=== PATIENT | male | born 1945 | race Caucasian/White ===

== ENCOUNTER 2016-10-02 16:27 | Observation (INO) | payer MEDICARE, OTHER ==
[2016-10-02] VITALS (7 sets, daily range): BP systolic 136–160; BP diastolic 76–107; PULSE 83–103; RESP 18–20; TEMP 97.9–98.7; O2SAT 95–99
[~2016-10-02] VITALS: Ht 172.7 cm; Wt 100.0 kg
[2016-10-02 17:06] LABS: BASOPHIL # 0.1 TH/MM3 (0-0.2); BASOPHIL % 0.7 % (0.0-2.0); EOSINOPHIL # 0.3 TH/MM3 (0-0.4); EOSINOPHIL % 2.8 % (0.0-4.0); HEMATOCRIT 33.7 % (39.0-51.0); HEMO FLAGS DIFF FINAL; LYMPH % 12.6 % (9.0-44.0); LYMPHOCYTE # 1.2 TH/MM3 (1.0-4.8); MEAN CELL VOLUME 92.2 FL (80.0-100.0); MEAN CORPUSCULAR HEMOGLOBIN 31.3 PG (27.0-34.0); MEAN CORPUSCULAR HGB CONC 33.9 % (32.0-36.0); MONO % 6.9 % (0.0-8.0); PLATELET COUNT 187 TH/MM3 (150-450); RED BLOOD COUNT 3.66 MIL/MM3 (4.50-5.90); RED CELL DISTRIBUTION WIDTH 14.4 % (11.6-17.2); WHITE BLOOD COUNT 9.1 TH/MM3 (4.0-11.0)
[2016-10-02 17:18] LABS: PROTHROMBIN TIME - PATIENT 11.3 SEC (9.8-11.6)
--- NOTE | 2016-10-02 17:27 | RADRPT ---
EXAM DATE/TIME: 10/02/2016 17:05 [facility] COMPARISON: No previous studies available for comparison. INDICATIONS : Patient fell this afternoon. MEDICAL HISTORY : None. SURGICAL HISTORY : None. ENCOUNTER: Initial ACUITY: 1 day PAIN SCORE: 8/10 LOCATION: Bilateral chest FINDINGS: A single view of the chest demonstrates the lungs to be symmetrically aerated without evidence of mas s, infiltrate or effusion. The cardiomediastinal contours are unremarkable. Osseous structures are intact. CONCLUSION: Normal examination. Seb Siddiqi MD on October 02, 2016 at 17:25 Board Certified Radiologist. This report was verified electronically.
--- NOTE | 2016-10-02 17:28 | RADRPT ---
EXAM DATE/TIME: 10/02/2016 17:12 [facility] COMPARISON: No previous studies available for comparison. INDICATIONS : Patient fell this afternoon. MEDICAL HISTORY : None. SURGICAL HISTORY : None. ENCOUNTER: Initial ACUITY: 1 day PAIN SCORE: 7/10 LOCATION: Left Forearm. FINDINGS: Two view examination of the left forearm demonstrates no evidence of fracture or dislocation. Bony m ineralization is normal. The soft tissue structures are intact. CONCLUSION: Unremarkable examination of the left forearm. Seb Siddiqi MD on October 02, 2016 at 17:26 Board Certified Radiologist. This report was verified electronically.
--- NOTE | 2016-10-02 17:28 | RADRPT ---
EXAM DATE/TIME: 10/02/2016 17:07 [facility] COMPARISON: No previous studies available for comparison. INDICATIONS : Patient fell this afternoon. MEDICAL HISTORY : None. SURGICAL HISTORY : None. ENCOUNTER: Initial ACUITY: 1 day PAIN SCORE: 7/10 LOCATION: Left Humerus. FINDINGS: Two view examination of the left humerus demonstrates no evidence of fracture or dislocation. Bony m ineralization is normal. The soft tissue structures are intact. CONCLUSION: Unremarkable examination of the left humerus except for small 8mm ossific fragment could be loose bod y within the bicipital tendon sheath. Seb Siddiqi MD on October 02, 2016 at 17:25 Board Certified Radiologist. This report was verified electronically.
[2016-10-02 17:35] LABS: ALKALINE PHOSPHATASE 60 U/L (45-117); ALT (GPT) 43 U/L (12-78); ANION GAP 7 MEQ/L (5-15); AST (GOT) 22 U/L (15-37); BICARBONATE 24.8 MEQ/L (21.0-32.0); BLOOD UREA NITROGEN 28 MG/DL (7-18); CHLORIDE 108 MEQ/L (98-107); CREATINE KINASE 105 U/L (39-308); GLOMERULAR FILTRATION RATE 51 ML/MIN (>89); MAGNESIUM 1.7 MG/DL (1.5-2.5); POTASSIUM 4.4 MEQ/L (3.5-5.1); SODIUM (NA) 140 MEQ/L (136-145); TOTAL BILIRUBIN ADULT 0.3 MG/DL (0.2-1.0)
--- NOTE | 2016-10-02 17:36 | PD ---
HPI Chief Complaint: Fall Time Seen by Provider: 17:28 Travel History International Travel<30 days: No Contact w/Intl Traveler<30days: No Traveled to known affect area: No History of Present Illness HPI 71-year-old male that presents to the ED for evaluation of syncope and fall. Patient was brought here by ambulance for evaluation of this. Per patient he was done as see his doctor Dr. Shaw her today to get clearance for surgery on his right shoulder. Per patient he was getting to the building when he all of a sudden felt very dizzy and lightheaded and he try to stop himself from falling by falling on the left side on a wall and he eventually lost consciousness. He does not remember what actually happened. Per patient he woke up with severe right-sided chest pain as well as left elbow and shoulder pain. Per patient he does have some right back pain as well as some neck pain and a slight headache. Patient does admit to psych. Patient has skin tears to his left arm. He denies any numbness, tilling, weakness. He denies any blood thinners other than aspirin. Per patient he denies any numbness, tilling, weakness. Per patient most of his pain is on the right chest which is severe and increases with movement. Ambulance was contacted and they brought him here on a backboard and with cervical collar in place. Per patient his pain currently 7 out of 10. He states been up-to-date with his tetanus. Unclear as to the amount of time he was out. 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 HEAD: Atraumatic. Normocephalic. EYES: Pupils equal and round 4 mm reactive to light and accommodation. No scleral icterus. No injection or drainage. ENT: No nasal bleeding or discharge. Mucous membranes pink and moist. Tongue is midline. No uvula deviation. NECK: Trachea midline. No JVD. CARDIOVASCULAR: Regular rate and rhythm. No murmurs, S3, S4. RESPIRATORY: No accessory muscle use. Clear to auscultation. Breath sounds equal bilaterally. GASTROINTESTINAL: Abdomen soft, non-tender, nondistended. Hepatic and splenic margins not palpable. MUSCULOSKELETAL: Extremities without clubbing, cyanosis, or edema. No obvious deformities. Full range of motion of the lower extremities with no pain. 2+ pulses bilaterally. Patient has superficial skin tears to the left arm as well as the elbow. Patient has a total of 5 of them less than 2 cm in diameter. Very well approximated. No signs of lacerations. No nerve, vessel, tendon any moment. Patient has not thoracic or lumbar spine tenderness to palpation. Patient does have some cervical spine tenderness to palpation. Most of the pain appears to be reproducible on the right-sided chest. Also pain with range of motion of the left shoulder. No obvious deformities noted. No obvious abdominal discomfort noted although some of the right ear. Pain is reproducible also on the right upper abdomen. NEUROLOGICAL: Awake and alert. No obvious cranial nerve deficits. Motor grossly within normal limits. Five out of 5 muscle strength in the arms and legs. Normal speech. PSYCHIATRIC: Appropriate mood and affect; insight and judgment normal. Data Data Last Documented VS Vital Signs Date Time Temp Pulse Resp B/P Pulse Ox O2 Delivery O2 Flow Rate FiO2 10/02/16 19:35 92 18 160/107 99 Room Air 10/02/16 16:40 98.7 Orders Electrocardiogram (10/02/16 16:45) Complete Blood Count With Diff (10/02/16 16:45) Comprehensive Metabolic Panel (10/02/16 16:45) Ckmb (Isoenzyme) Profile (10/02/16 16:45) Troponin I (10/02/16 16:45) Prothrombin Time / Inr (Pt) (10/02/16 16:45) Act Partial Throm Time (Ptt) (10/02/16 16:45) Magnesium (Mg) (10/02/16 16:45) Thyroid Stimulating Hormone (10/02/16 16:45) Chest, Single Ap (10/02/16 16:45) Ct Brain W/O Iv Contrast(Rout) (10/02/16 16:45) Ct Abd/Pel W Iv Contrast(Rout) (10/02/16 16:45) Iv Access Insert/Monitor (10/02/16 16:45) Ecg Monitoring (10/02/16 16:45) Oximetry (10/02/16 16:45) Orthostatic Vital Signs (10/02/16 16:45) Ct Thorax/ Chest W Iv Contrast (10/02/16 16:45) Ct Cerv Spine W/O Contrast (10/02/16 16:45) Forearm (2vws) (10/02/16 16:45) Humerus (Min 2vws) (10/02/16 16:45) Ice/Cold Pack (10/02/16 16:45) CKMB (10/02/16 16:53) CKMB% (10/02/16 16:53) Morphine Inj (Morphine Inj) (10/02/16 18:00) Ondansetron Inj (Zofran Inj) (10/02/16 18:00) Wound Care (10/02/16 18:28) Iohexol 350 Inj (Omnipaque 350 Inj) (10/02/16 19:07) Admit Order (Ed Use Only) (10/02/16 19:55) Labs Laboratory Tests Test 10/02/16 16:53 White Blood Count 9.1 TH/MM3 Red Blood Count 3.66 MIL/MM3 Hemoglobin 11.4 GM/DL Hematocrit 33.7 % Mean Corpuscular Volume 92.2 FL Mean Corpuscular Hemoglobin 31.3 PG Mean Corpuscular Hemoglobin 33.9 % Concent Red Cell Distribution Width 14.4 % Platelet Count 187 TH/MM3 Mean Platelet Volume 7.6 FL Neutrophils (%) (Auto) 77.0 % Lymphocytes (%) (Auto) 12.6 % Monocytes (%) (Auto) 6.9 % Eosinophils (%) (Auto) 2.8 % Basophils (%) (Auto) 0.7 % Neutrophils # (Auto) 7.0 TH/MM3 Lymphocytes # (Auto) 1.2 TH/MM3 Monocytes # (Auto) 0.6 TH/MM3 Eosinophils # (Auto) 0.3 TH/MM3 Basophils # (Auto) 0.1 TH/MM3 CBC Comment DIFF FINAL Differential Comment Prothrombin Time 11.3 SEC Prothromb Time International 1.0 RATIO Ratio Activated Partial 23.0 SEC Thromboplast Time Sodium Level 140 MEQ/L Potassium Level 4.4 MEQ/L Chloride Level 108 MEQ/L Carbon Dioxide Level 24.8 MEQ/L Anion Gap 7 MEQ/L Blood Urea Nitrogen 28 MG/DL Creatinine 1.38 MG/DL Estimat Glomerular Filtration 51 ML/MIN Rate Random Glucose 269 MG/DL Calcium Level 8.6 MG/DL Magnesium Level 1.7 MG/DL Total Bilirubin 0.3 MG/DL Aspartate Amino Transf 22 U/L (AST/SGOT) Alanine Aminotransferase 43 U/L (ALT/SGPT) Alkaline Phosphatase 60 U/L Total Creatine Kinase 105 U/L Creatine Kinase MB 1.9 NG/ML Troponin I 0.02 NG/ML Total Protein 6.7 GM/DL Albumin 3.3 GM/DL Thyroid Stimulating Hormone 4.730 uIU/ML 3rd Gen [facility] Medical Decision Making Medical Screen Exam Complete: Yes Emergency Medical Condition: Yes Medical Record Reviewed: Yes Interpretation(s) EKG shows a. fib but not in RVR, no ischemia noted read by me and attending. CBC & BMP Diagram 10/02/16 16:53 troponin and CKMB negative Last Impressions Radius/Ulna X-Ray 10/02/161644 Signed Impressions: Service Date/Time: September 17:12 - CONCLUSION: Unremarkable examination of the left forearm. Seb Siddiqi MD Humerus X-Ray 10/02/161644 Signed Impressions: Service Date/Time: September 17:07 - CONCLUSION: Unremarkable examination of the left humerus except for small 8mm ossific fragment could be loose body within the bicipital tendon sheath. Seb Siddiqi MD Head CT 10/02/161644 Signed Impressions: Service Date/Time: September 18:51 - CONCLUSION: No acute intracranial injury. Chronic-appearing sinus disease Ney Mcwilliams MD Chest X-Ray 10/02/161644 Signed Impressions: Service Date/Time: September 17:05 - CONCLUSION: Normal examination. Seb Siddiqi MD Chest CT 10/02/161644 Signed Impressions: Service Date/Time: September 18:51 - CONCLUSION: No acute findings in the chest Ney Mcwilliams MD Cervical Spine CT 10/02/161644 Signed Impressions: Service Date/Time: September 18:58 - CONCLUSION: No acute bony injury to cervical spine Ney Mcwilliams MD Abdomen/Pelvis CT 10/02/16 0410 Signed Impressions: Service Date/Time: September 18:51 - CONCLUSION: Normal examination. Ney Mcwilliams MD LFTs WNL Coags WNL Differential Diagnosis Chest pain versus fall versus head injury versus fracture versus syncope versus presyncope versus ACS Narrative Course 71-year-old male that presents to the for evaluation of syncope and fall. Patient was properly examined and was found to have signs and symptoms consistent with syncope and fall. This time recommendations for labs and imaging. Patient is agreement with this. Labs and imaging showed no sign of acute bony injury. TSH slightly elevated but otherwise unremarkable. Patient was reassured. Because of patient's syncopal episode and no history of previous syncope and do recommend admission for syncope workup. Patient is agreement with this plan. [facility] was paged. Dr Mathew agrees to admission. Diagnosis Primary Impression: Syncope Qualified Code: R55 - Syncope, unspecified syncope type Additional Impressions: Contusion of rib on right side Qualified Code: S20.211A - Contusion of rib on right side, initial encounter Head injury Qualified Code: S09.90XA - Head injury, initial encounter Avulsion of skin of forearm Qualified Code: S51.802A - Avulsion of skin of forearm, left, initial encounter Admitting Information Admitting Physician Requests: Jim Westbrook Oct 02, 2016 17:36
[2016-10-02 17:47] LABS: CKMB 1.9 NG/ML (0.5-3.6)
[2016-10-02] MEDS ORDERED: ONDANSETRON HCL 4 MG/2 ML VIAL IV PUSH ONE (18:00)
[2016-10-02] MEDS ORDERED: MORPHINE SULFATE 4 MG/ML INJ IV PUSH ONE ×2 (18:00→20:30)
[2016-10-02] MEDS ORDERED: IOHEXOL 350 MG/ML 10 ML VIAL (for RAD DIAG) IV ONE (19:07)
--- NOTE | 2016-10-02 19:17 | RADRPT ---
EXAM DATE/TIME: 10/02/2016 18:51 [facility] COMPARISON: No previous studies available for comparison. INDICATIONS : Syncopal episode with fall today; generalized malaise. RADIATION DOSE: 69.15 CTDIvol (mGy) MEDICAL HISTORY : Diabetes mellitus type 2. SURGICAL HISTORY : None. ENCOUNTER: Initial ACUITY: 1 day PAIN SCALE: 4/10 LOCATION: cranial TECHNIQUE: Multiple contiguous axial images were obtained of the head. Using automated exposure control and adj ustment of the mA and/or kV according to patient size, radiation dose was kept as low as reasonably a chievable to obtain optimal diagnostic quality images. FINDINGS: The ventricles are symmetric and normal. No abnormal extra-axial fluid collections are identified. Th ere is mild patchy diminished attenuation in periventricular white matter. No evidence of intracrania l mass or hemorrhage. There is nothing to suggest acute infarction. There is scalp laceration in the left frontal region without evidence of underlying skull fracture. There is near confluent opacificat ion of the left sphenoid sinus. CONCLUSION: No acute intracranial injury. Chronic-appearing sinus disease Ney Mcwilliams MD on October 02, 2016 at 19:12 Board Certified Radiologist. This report was verified electronically.
--- NOTE | 2016-10-02 19:29 | RADRPT ---
EXAM DATE/TIME: 10/02/2016 18:51 [facility] COMPARISON: No previous studies available for comparison. INDICATIONS : Syncopal episode with fall today; generalized malaise. IV CONTRAST: 97 cc Omnipaque 350 (iohexol) IV ; Cumulative dose for multiple exams. ORAL CONTRAST: No oral contrast ingested. RADIATION DOSE: 11.90 CTDIvol (mGy) ; Combined studies - Thorax/Abdomen/Pelvis MEDICAL HISTORY : Diabetes mellitus type 2. SURGICAL HISTORY : None. ENCOUNTER: Initial ACUITY: 1 day PAIN SCALE: 3/10 LOCATION: Abdomen/pelvis TECHNIQUE: Volumetric scanning of the abdomen and pelvis was performed. Using automated exposure control and ad justment of the mA and/or kV according to patient size, radiation dose was kept as low as reasonably achievable to obtain optimal diagnostic quality images. FINDINGS: LOWER LUNGS: The visualized lower lungs are clear. LIVER: Homogeneous density without lesion. There is no dilation of the biliary tree. No calcified gallston es. SPLEEN: Normal size without lesion. PANCREAS: Within normal limits. KIDNEYS: Normal in size and shape. There is no mass, stone or hydronephrosis. ADRENAL GLANDS: Within normal limits. VASCULAR: There is no aortic aneurysm. BOWEL/MESENTERY: The stomach, small bowel, and colon demonstrate no acute abnormality. There is no free intraperitone al air or fluid. ABDOMINAL WALL: Within normal limits. RETROPERITONEUM: There is no lymphadenopathy. BLADDER: No wall thickening or mass. REPRODUCTIVE: Within normal limits. INGUINAL: There is no lymphadenopathy or hernia. MUSCULOSKELETAL: Within normal limits for patient age. CONCLUSION: Normal examination. Ney Mcwilliams MD on October 02, 2016 at 19:25 Board Certified Radiologist. This report was verified electronically.
--- NOTE | 2016-10-02 19:30 | RADRPT ---
EXAM DATE/TIME: 10/02/2016 18:51 [facility] COMPARISON: No previous studies available for comparison. INDICATIONS : Syncopal episode with fall today; generalized malaise. IV CONTRAST: 97 cc Omnipaque 350 (iohexol) IV ; Cumulative dose for multiple exams. RADIATION DOSE: 11.90 CTDIvol (mGy) ; Combined studies - Thorax/Abdomen/Pelvis MEDICAL HISTORY : Diabetes mellitus type 2. SURGICAL HISTORY : None. ENCOUNTER: Initial ACUITY: 1 day PAIN SCALE: 5/10 LOCATION: Bilateral chest TECHNIQUE: Volumetric scanning of the chest was performed. Using automated exposure control and adjustment of t he mA and/or kV according to patient size, radiation dose was kept as low as reasonably achievable to obtain optimal diagnostic quality images. FINDINGS: LUNGS: There is no consolidation or pneumothorax. No concerning pulmonary nodule is visualized. PLEURA: There is no pleural thickening or pleural effusion. MEDIASTINUM: The heart and great vessels demonstrate no acute abnormality. There is no mediastinal or hilar lymph adenopathy. Coronary artery calcifications. Minimal pericardial fluid. AXILLAE: Within normal limits. No lymphadenopathy. SKELETAL: Within normal limits for patient age. MISCELLANEOUS: The visualized upper abdominal organs demonstrate no acute abnormality. CONCLUSION: No acute findings in the chest Ney Mcwilliams MD on October 02, 2016 at 19:28 Board Certified Radiologist. This report was verified electronically.
--- NOTE | 2016-10-02 19:33 | RADRPT ---
EXAM DATE/TIME: 10/02/2016 18:58 [facility] COMPARISON: No previous studies available for comparison. INDICATIONS : Syncopal episode with fall today; generalized malaise. RADIATION DOSE: 49.49 CTDIvol (mGy) MEDICAL HISTORY : Diabetes mellitus type 2. SURGICAL HISTORY : None. ENCOUNTER: Initial ACUITY: 1 day PAIN SCALE: 4/10 LOCATION: neck TECHNIQUE: Volumetric scanning of the cervical spine was performed. Multiplanar reconstructions in the sagittal, coronal and oblique axial planes were performed. Using automated exposure control and adjustment o f the mA and/or kV according to patient size, radiation dose was kept as low as reasonably achievable to obtain optimal diagnostic quality images. FINDINGS: Cervical spine alignment is satisfactory. There is no evidence of fracture. No bony canal or foramina l compromise is noted. There is mild degenerative change and disc disease present with a moderate siz e central to minimally left paracentral disc protrusion at C3-4, slight broad central disc protrusion C4-5. Multilevel posterior facet arthropathy is present, generally worse on the left than the right. CONCLUSION: No acute bony injury to cervical spine Ney Mcwilliams MD on October 02, 2016 at 19:29 Board Certified Radiologist. This report was verified electronically.
[2016-10-02] MEDS ORDERED: SODIUM CHLORIDE 0.9% FLUSH 10 ML FLUSH IV FLUSH PRN (20:00)
[2016-10-02] MEDS ORDERED: NALOXONE HCL 0.4 MG/ML AMP IV PRN (20:00)
[2016-10-02] MEDS: SODIUM CHLORIDE 0.9% FLUSH 10 ML FLUSH IV FLUSH SCH (20:35)
--- NOTE | 2016-10-02 21:45 | RADRPT ---
EXAM DATE/TIME: 10/02/2016 21:00 [facility] COMPARISON: No previous studies available for comparison. INDICATIONS : Syncope. MEDICAL HISTORY : Hypertension. Diabetes. SURGICAL HISTORY : Hernia repair. Left knee replacement. Tumor removed from left shoulder. ENCOUNTER: Initial ACUITY: 1 day PAIN SCORE: 8/10 LOCATION: Bilateral neck PEAK SYSTOLIC VELOCITIES (cm/sec): ICA/CCA RATIO: Right: 0.9 Left: 1.0 ICA: Right: 69 Left: 74 CCA: Right: 74 Left: 77 ECA: Right: 70 Left: 76 VERTEBRAL: Right: 30 antegrade Left: 43 antegrade Elevated flow velocities and ICA/CCA ratios have been found to correlate with increased degrees of vessel stenosis, calculated as percentage of diameter relative to a normal segment of distal ICA/CCA FINDINGS: RIGHT CAROTID: Mild calcific plaquing. LEFT CAROTID: Mild calcific plaquing. VERTEBRAL ARTERIES: Antegrade flow is seen in both vertebral arteries. MISCELLANEOUS: None. CONCLUSION: No evidence of flow-limiting carotid stenosis. Ney Mcwilliams MD on October 02, 2016 at 21:42 Board Certified Radiologist. This report was verified electronically.
--- NOTE | 2016-10-02 23:02 | EKG ---
Date Performed: 10/02/2016 Time Performed: 16:54:04 PTAGE: 71 years EKG: POSSIBLE Sinus rhythm WITH PACs ABNORMAL RHYTHM ECG PREVIOUS TRACING : 07/15/2001 20.09 Compared to previous tracing, nonspecific inferior and late ral ST/T changes have improved. DOCTOR: Junaid Sue Interpretating Date/Time 10/02/2016 23:00:38
[2016-10-03] VITALS (10 sets, daily range): BP systolic 123–173; BP diastolic 77–108; PULSE 83–124; RESP 16–20; TEMP 96–98.8; O2SAT 92–96
--- NOTE | 2016-10-03 02:29 | HHI.HP ---
[facility] Primary Care Physician Non-Staff Admission Diagnosis syncope, fall, rib contusions, skin avulsions, head injury Diagnoses: Chief Complaint: fell down Travel History International Travel<30 Days: No Contact w/Intl Traveler <30 Da: No Traveled to Known Affected Are: No History of Present Illness History from patient, ER physician communication current review of medical records. 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 She he describes the pain as his head is spinning around. He denies any nausea or vomiting. Denies any chest pain/palpitations/shortness of breath/sweating. He reports that because of this dizziness, he was starting to fall. He states he could see the floor coming towards him. He states that he then started falling towards a pole near him and his head was going towards the motor and hit so hard. He reports that impact was so severe that he passed out. Next thing He knows, there were people around him. Patient states the fall and the impact is what made him pass out. He denies syncope preceding the fall. Patient denies any confusional state post the event. He also denies any urinary or bowel incontinence. Patient states he is diabetic. However he took his last male with toast and jelly around 2 PM. He stated that the fall happened around 4 PM. He admits to skipping his breakfast and lunch apart from that toast and Jell-O. However never measures his blood sugars at home. As far as I know from ER report, there was no recorded episodes of hypoglycemia. His only complaint is that he does his chest pains in his chest and back pain since the fall Review of Systems Except as stated in HPI: all other systems reviewed are Neg Past Family Social History Past Medical History htn dm cad- mini heart attach jun 2000 afib- only takes asa 81mg quit smoking 1984 pipe and cigars tara cva- min stroke that time in jun 2000 Past Surgical History lipoma left shoulder left knee replaced one hernia Reported Medications Patient's patient does not remember the names and doses of his medications. Stated that his will bring the list in a.m. Allergies: Coded Allergies: No Known Allergies (Unverified , 10/02/16) Family History mother - htn, dm father- ca - bladder Social History used to smoke pipes quit 1983 no drinking no drugs still drives Physical Exam Vital Signs Vital Signs Date Time Temp Pulse Resp B/P Pulse Ox O2 Delivery O2 Flow Rate FiO2 10/03/16 00:42 98.4 89 18 147/94 95 10/02/16 23:40 83 10/02/16 22:11 97.9 88 18 160/91 97 10/02/16 21:00 18 10/02/16 19:35 92 18 160/107 99 Room Air 10/02/16 18:53 99 18 151/76 98 Room Air 10/02/16 18:51 94 18 137/84 99 18 153/81 100 18 151/76 10/02/16 16:50 97 Room Air 10/02/16 16:48 97 18 98 Room Air 10/02/16 16:40 98.7 103 20 136/98 95 Physical Exam GENERAL: This is a very pleasant gentleman, no acute distress. SKIN: Significant left-sided facial ecchymosis HEAD: Atraumatic. Normocephalic. No temporal or scalp tenderness. EYES: Pupils equal round and reactive. Extraocular motions intact. No scleral icterus ENT: Nose without bleeding, purulent drainage or septal hematoma. Airway patent. NECK: Trachea midline. No JVDSupple, nontender, no meningeal signs. CARDIOVASCULAR: Regular rate and rhythm without murmurs, gallops, or rubs. RESPIRATORY: Clear to auscultation. Breath sounds equal bilaterally. No wheezes , rales, or rhonchi. GASTROINTESTINAL: Abdomen soft, non-tender, nondistended. No guarding. MUSCULOSKELETAL: Extremities without clubbing, cyanosis, or edema. . No calf tenderness. NEUROLOGICAL: Awake and alert. Cranial nerves II through XII intact. Motor and sensory grossly within normal limits. Normal speech. Laboratory Laboratory Tests Test 10/02/16 10/03/16 16:53 01:00 White Blood Count 9.1 Red Blood Count 3.66 Hemoglobin 11.4 Hematocrit 33.7 Mean Corpuscular Volume 92.2 Mean Corpuscular Hemoglobin 31.3 Mean Corpuscular Hemoglobin 33.9 Concent Red Cell Distribution Width 14.4 Platelet Count 187 Mean Platelet Volume 7.6 Neutrophils (%) (Auto) 77.0 Lymphocytes (%) (Auto) 12.6 Monocytes (%) (Auto) 6.9 Eosinophils (%) (Auto) 2.8 Basophils (%) (Auto) 0.7 Neutrophils # (Auto) 7.0 Lymphocytes # (Auto) 1.2 Monocytes # (Auto) 0.6 Eosinophils # (Auto) 0.3 Basophils # (Auto) 0.1 CBC Comment DIFF FINAL Differential Comment Prothrombin Time 11.3 Prothromb Time International 1.0 Ratio Activated Partial 23.0 Thromboplast Time Sodium Level 140 Potassium Level 4.4 Chloride Level 108 Carbon Dioxide Level 24.8 Anion Gap 7 Blood Urea Nitrogen 28 Creatinine 1.38 Estimat Glomerular Filtration 51 Rate Random Glucose 269 Calcium Level 8.6 Magnesium Level 1.7 Total Bilirubin 0.3 Aspartate Amino Transf 22 (AST/SGOT) Alanine Aminotransferase 43 (ALT/SGPT) Alkaline Phosphatase 60 Total Creatine Kinase 105 269 Creatine Kinase MB 1.9 Troponin I 0.02 0.03 Total Protein 6.7 Albumin 3.3 Thyroid Stimulating Hormone 4.730 3rd Gen Result Diagram: 10/02/16165210/02/161652 Imaging Last 48 hours Impressions Radius/Ulna X-Ray 10/02/161644 Signed Impressions: Service Date/Time: September 17:12 - CONCLUSION: Unremarkable examination of the left forearm. Seb Siddiqi MD Humerus X-Ray 10/02/161644 Signed Impressions: Service Date/Time: September 17:07 - CONCLUSION: Unremarkable examination of the left humerus except for small 8mm ossific fragment could be loose body within the bicipital tendon sheath. Seb Siddiqi MD Head CT 10/02/161644 Signed Impressions: Service Date/Time: September 18:51 - CONCLUSION: No acute intracranial injury. Chronic-appearing sinus disease Ney Mcwilliams MD Chest X-Ray 10/02/161644 Signed Impressions: Service Date/Time: September 17:05 - CONCLUSION: Normal examination. Seb Siddiqi MD Chest CT 10/02/161644 Signed Impressions: Service Date/Time: September 18:51 - CONCLUSION: No acute findings in the chest Ney Mcwilliams MD Cervical Spine CT 10/02/16 1645 Signed Impressions: Service Date/Time: September 18:58 - CONCLUSION: No acute bony injury to cervical spine Ney Mcwilliams MD Abdomen/Pelvis CT 10/02/16 1645 Signed Impressions: Service Date/Time: September 18:51 - CONCLUSION: Normal examination. Ney Mcwilliams MD Carotid Artery Ultrasound 10/02/16 0000 Signed Impressions: Service Date/Time: September 21:00 - CONCLUSION: No evidence of flow-limiting carotid stenosis. Ney Mcwilliams MD Assessment and Plan Problem List: (1) Syncope ICD Code: R55 Status: Acute (2) Head injury ICD Code: S09.90XA Status: Acute (3) Avulsion of skin of forearm ICD Code: S51.809A Status: Acute (4) Contusion of rib on right side ICD Code: S20.211A Status: Acute Assessment and Plan Impression: Status post fall Syncopequestion whether this precedes fall versus cause of the fall Plan: Echocardiogram in a.m. Carotid sono. Telemetry monitoring. Head CTreviewed. No evidence of intracranial hemorrhage/mass//midline shift. Multiple imaging studies reviewed as above. No evidence of pulmonary embolism/ fractures/lung infiltrate. No evidence of intraperitoneal hematoma. Physical therapy consult. Orthostatics. DVT prophylaxiswith Lovenox. GI prophylaxis on pantoprazole. Discussed Condition With patient Problem Qualifiers (1) Syncope: Qualified Code: R55 - Syncope, unspecified syncope type (2) Head injury: Qualified Code: S09.90XA - Head injury, initial encounter (3) Avulsion of skin of forearm: Qualified Code: S51.802A - Avulsion of skin of forearm, left, initial encounter (4) Contusion of rib on right side: Qualified Code: S20.211A - Contusion of rib on right side, initial encounter Nakul Mathew MD Oct 03, 2016 02:29
[2016-10-03] MEDS ORDERED: DEXTROSE 50% IN WATER 50 ML VIAL(D50) IV PUSH PRN (02:30)
[2016-10-03] MEDS ORDERED: GLUCAGON 1 MG/ML VIAL OTHER PRN (02:30)
[2016-10-03] MEDS ORDERED: ZOLPIDEM TARTRATE 5 MG TAB PO ONE (02:30)
[2016-10-03] MEDS: ACETAMINOPHEN/HYDROcodone 325 MG/5 MG TAB PO PRN ×3 (03:18→20:56)
[2016-10-03] MEDS: INSULIN ASPART SUPPLEMENTAL SCALE SQ SCH ×4 (06:10→20:42)
[2016-10-03] MEDS ORDERED: ACETAMINOPHEN 325 MG TAB PO ONE (06:45)
[2016-10-03 07:02] LABS: BASOPHIL % 0.5 % (0.0-2.0); EOSINOPHIL # 0.3 TH/MM3 (0-0.4); EOSINOPHIL % 2.9 % (0.0-4.0); HEMO FLAGS DIFF FINAL; LYMPH % 11.8 % (9.0-44.0); LYMPHOCYTE # 1.1 TH/MM3 (1.0-4.8); MEAN CELL VOLUME 92.8 FL (80.0-100.0); MEAN CORPUSCULAR HEMOGLOBIN 31.1 PG (27.0-34.0); MEAN CORPUSCULAR HGB CONC 33.5 % (32.0-36.0); MONO % 7.7 % (0.0-8.0); NEUT % 77.1 % (16.0-70.0); PLATELET COUNT 154 TH/MM3 (150-450); RED BLOOD COUNT 3.66 MIL/MM3 (4.50-5.90); RED CELL DISTRIBUTION WIDTH 14.4 % (11.6-17.2); WHITE BLOOD COUNT 9.1 TH/MM3 (4.0-11.0)
[2016-10-03 07:19] LABS: BICARBONATE 26.5 MEQ/L (21.0-32.0)
[2016-10-03] MEDS ORDERED: cloNIDine HCL 0.1 MG TAB PO PRN (08:30)
[2016-10-03] MEDS: ENOXAPARIN SODIUM 40 MG/0.4 ML SYRINGE SQ SCH (08:40)
[2016-10-03] MEDS: SODIUM CHLORIDE 0.9% FLUSH 10 ML FLUSH IV FLUSH SCH ×2 (08:40→20:40)
[2016-10-03] MEDS ORDERED: METOPROLOL TARTRATE 25 MG TAB PO ONE (10:30)
[2016-10-03] MEDS ORDERED: FURO40TA PO (10:57)
[2016-10-03] MEDS ORDERED: CARV6.252 PO (10:57)
[2016-10-03] MEDS ORDERED: DILT-64 PO (10:57)
[2016-10-03] MEDS ORDERED: ATOR1TAB18 PO (10:57)
[2016-10-03] MEDS ORDERED: GLIP10TA6 PO ×2 (10:57)
[2016-10-03] MEDS ORDERED: NITR0.4S SL (10:57)
[2016-10-03] MEDS ORDERED: PAXI20TA PO (10:57)
[2016-10-03] MEDS ORDERED: HYDR-3583 PO (10:57)
[2016-10-03] MEDS ORDERED: TIZA4TAB PO (10:57)
[2016-10-03] MEDS ORDERED: LOSA25TA PO (10:57)
--- NOTE | 2016-10-03 10:59 | HHI.PR ---
Subjective Remarks Follow-up dizziness with LOC due to head trauma due to fall. Patient denies any further symptoms such as nausea, vomiting, dizziness, chest pain, shortness of breath, or vertigo. Has been out of bed and ambulatory with PT. Denies any recent medication changes. Had episode of dizziness in the afternoon yesterday with LOC due to head trauma due to fall. Does admit to eating breakfast and taking medications that morning. Patient unsure of home medication list. Discussed with RN, working on medication reconciliation. Objective Vitals Vital Signs Date Time Temp Pulse Resp B/P Pulse Ox O2 Delivery O2 Flow Rate FiO2 10/03/16 08:10 96.0 124 19 173/108 92 10/03/16 08:00 124 10/03/16 04:50 98.8 89 16 151/98 95 10/03/16 00:42 98.4 89 18 147/94 95 10/02/16 23:40 83 10/02/16 22:11 97.9 88 18 160/91 97 10/02/16 21:00 18 10/02/16 19:35 92 18 160/107 99 Room Air 10/02/16 18:53 99 18 151/76 98 Room Air 10/02/16 18:51 94 18 137/84 99 18 153/81 100 18 151/76 10/02/16 16:50 97 Room Air 10/02/16 16:48 97 18 98 Room Air 10/02/16 16:40 98.7 103 20 136/98 95 I/O 10/02/16 10/02/16 10/02/16 10/03/16 10/03/16 10/03/16 07:00 15:00 23:00 07:00 15:00 23:00 Intake Total 240 ml Balance 240 ml Intake Oral 240 ml Result Diagram: 10/03/16 0619 10/03/16 0619 Imaging Last Impressions Radius/Ulna X-Ray 10/02/161644 Signed Impressions: Service Date/Time: September 17:12 - CONCLUSION: Unremarkable examination of the left forearm. Seb Siddiqi MD Humerus X-Ray 10/02/161644 Signed Impressions: Service Date/Time: September 17:07 - CONCLUSION: Unremarkable examination of the left humerus except for small 8mm ossific fragment could be loose body within the bicipital tendon sheath. Seb Siddiqi MD Head CT 10/02/161644 Signed Impressions: Service Date/Time: September 18:51 - CONCLUSION: No acute intracranial injury. Chronic-appearing sinus disease Ney Mcwilliams MD Chest X-Ray 10/02/161644 Signed Impressions: Service Date/Time: September 17:05 - CONCLUSION: Normal examination. Seb Siddiqi MD Chest CT 10/02/161644 Signed Impressions: Service Date/Time: September 18:51 - CONCLUSION: No acute findings in the chest Ney Mcwilliams MD Cervical Spine CT 10/02/161644 Signed Impressions: Service Date/Time: September 18:58 - CONCLUSION: No acute bony injury to cervical spine Ney Mcwilliams MD Abdomen/Pelvis CT 10/02/161644 Signed Impressions: Service Date/Time: September 18:51 - CONCLUSION: Normal examination. Ney Mcwilliams MD Carotid Artery Ultrasound 10/02/16 0000 Signed Impressions: Service Date/Time: September 21:00 - CONCLUSION: No evidence of flow-limiting carotid stenosis. Ney Mcwilliams MD Objective Remarks GENERAL: Well-nourished, well-developed patient in [facility]. SKIN: Warm and dry. No rash. HEENT: Normocephalic. Pupils equal, round and reactive. No scleral icterus. Mucous membranes pink and moist. Left eye and neck ecchymosis from recent fall. NECK: Supple. Trachea midline. CARDIOVASCULAR: Tachycardia noted. S1, S2 noted. No murmur appreciated. RESPIRATORY: No accessory muscle use. Clear to auscultation. Breath sounds equal bilaterally. GASTROINTESTINAL: Abdomen soft, non-tender, nondistended. Normoactive bowel sounds x4. MUSCULOSKELETAL: No obvious deformities. Extremities without clubbing, cyanosis , or edema. Subjective complaint of low back pain spasms. NEUROLOGICAL: Awake and alert. No obvious cranial nerve deficits. Motor grossly within normal limits. 5/5 muscle strength in bilateral upper and lower extremities. Normal speech. PSYCHIATRIC: Appropriate mood and affect; insight and judgment normal. Urinary Catheter: No Vascular Central Line Catheter: No A/P Assessment and Plan Mr. Caldera is a 71-year-old male with a known history of hypertension, diabetes, CAD, atrial fibrillation, and history of CVA who presented to the ED after a syncopal episode and hitting his head with associated vertigo, dizziness and "feeling faint". Head CT report reviewed, no acute intracranial injury; Carotid US report reviewed, no evidence of carotid stenosis; Radius/ulna /humerus/chest x-rays all negative. Cervical spine and abdominal/pelvis CT report reviewed and negative. Dizziness leading to fall with subsequent syncope: LOC after striking head after a fall. Dizziness possibly due to dehydration. No recent medication changes. No noted hypoglycemia. ECHO ordered, awaiting results. Discussed with PT, orthostatic blood pressures normal. Monitor on telemetry, [facility] JESSICA/Dehydration: Suspected JESSICA secondary to overdiuresis with Lasix. Creatinine initially 1.38, improved to 1.07. This could definitely contribute to dizziness. Hold Lasix. Acute on chronic shoulder and back pain: Control pain, Morphine IV given in the ED, continue Klemme PRN per pain scale. Patient takes Lortab at home. Change Tizanidine from scheduled to PRN for muscle spasm, hold for sedation with dizziness. History of atrial fibrillation: Resume home Cardizem and Carvedilol. Diabetes Mellitus: ACCU checks ACHS, sliding scale insulin. Heart healthy 1800 ADA diet. Hypertension: Clonidine PRN, Metoprolol x 1 given. Continue losartan. Monitor blood pressure. Continue telemetry. DVT prophylaxis: Lovenox Discharge Planning Patient can potentially be discharged if echo is unremarkable and patient remained stable later today versus tomorrow Shawna Azevedo Oct 03, 2016 10:59
[2016-10-03] MEDS ORDERED: glipiZIDE 10 MG TAB PO ONE (12:00)
[2016-10-03] MEDS: DILTIAZEM-CD 240 MG CAP ER PO SCH (12:20)
[2016-10-03] MEDS: glipiZIDE 10 MG TAB PO SCH (17:03)
[2016-10-03] MEDS: CARVEDILOL 6.25 MG TAB PO SCH (20:40)
[2016-10-03] MEDS ORDERED: ATORVASTATIN 80 MG TAB PO SCH (21:00)
[2016-10-03] MEDS ORDERED: ZOLPIDEM TARTRATE 5 MG TAB PO PRN (23:00)
[2016-10-04 00:20] VITALS: BP 157/87; PULSE 84; RESP 18; TEMP 97.8; O2SAT 93
[2016-10-04 05:45] VITALS: BP 167/98; PULSE 83; RESP 18; O2SAT 93
[2016-10-04] MEDS: INSULIN ASPART SUPPLEMENTAL SCALE SQ SCH (06:47)
[2016-10-04] MEDS ORDERED: glipiZIDE 10 MG TAB PO SCH (08:00)
[2016-10-04] MEDS ORDERED: GLIP10TA6 PO (08:13)
--- NOTE | 2016-10-04 08:23 | HHI.PR ---
Subjective Remarks Follow-up for dizziness and fall. The patient complains of some left lower jaw pain from where he fell previously. He's been able to eat and she is fitted with no difficulties. He's been ambulating here with no difficulties, denies any further lightheadedness or dizziness. Follows with PCP in [place]. Has an appointment upcoming with Dr. Leggett with cardiology for preop clearance. Objective Vitals Vital Signs Date Time Temp Pulse Resp B/P Pulse Ox O2 Delivery O2 Flow Rate FiO2 10/04/16 05:45 83 18 167/98 93 10/04/16 00:20 97.8 84 18 157/87 93 10/03/16 20:00 83 10/03/16 19:27 98.0 85 20 123/77 96 10/03/16 16:29 96.0 88 18 151/105 94 10/03/16 12:14 100 162/102 10/03/16 12:13 135/91 10/03/16 12:10 96.4 105 18 165/94 92 I/O 10/03/16 10/03/16 10/03/16 10/04/16 10/04/16 10/04/16 07:00 15:00 23:00 07:00 15:00 23:00 Intake Total 480 ml 480 ml 240 ml Output Total 300 ml Balance 480 ml 480 ml -60 ml Intake Oral 480 ml 480 ml 240 ml Output Urine Total 300 ml # Voids 2 1 3 Result Diagram: 10/03/16 0619 10/03/16 0619 Imaging Last Impressions Radius/Ulna X-Ray 10/02/161644 Signed Impressions: Service Date/Time: September 17:12 - CONCLUSION: Unremarkable examination of the left forearm. Seb Siddiqi MD Humerus X-Ray 10/02/161644 Signed Impressions: Service Date/Time: September 17:07 - CONCLUSION: Unremarkable examination of the left humerus except for small 8mm ossific fragment could be loose body within the bicipital tendon sheath. Seb Siddiqi MD Head CT 10/02/161644 Signed Impressions: Service Date/Time: September 18:51 - CONCLUSION: No acute intracranial injury. Chronic-appearing sinus disease Ney Mcwilliams MD Chest X-Ray 10/02/165 Signed Impressions: Service Date/Time: September 17:05 - CONCLUSION: Normal examination. Seb Siddiqi MD Chest CT 10/02/161644 Signed Impressions: Service Date/Time: September 18:51 - CONCLUSION: No acute findings in the chest Ney Mcwilliams MD Cervical Spine CT 10/02/161644 Signed Impressions: Service Date/Time: September 18:58 - CONCLUSION: No acute bony injury to cervical spine Ney Mcwilliams MD Abdomen/Pelvis CT 10/02/161644 Signed Impressions: Service Date/Time: September 18:51 - CONCLUSION: Normal examination. Ney Mcwilliams MD Carotid Artery Ultrasound 10/02/16 0000 Signed Impressions: Service Date/Time: September 21:00 - CONCLUSION: No evidence of flow-limiting carotid stenosis. Ney Mcwilliams MD Objective Remarks GENERAL: Well-developed well-nourished. In no acute distress. SKIN: Warm and dry. Left periorbital and left jaw ecchymosis. Skin tears left forearm. HEENT: Normocephalic. Pupils equal and round. Mucous membranes pink and moist. CARDIOVASCULAR: Regular rate and rhythm. No murmur appreciated. RESPIRATORY: No accessory muscle use. Clear to auscultation. Breath sounds equal bilaterally. GASTROINTESTINAL: Abdomen soft, non-tender, nondistended. Bowel sounds x4. MUSCULOSKELETAL: No obvious deformities. No clubbing or cyanosis. Trace lower extremity edema. NEUROLOGICAL: Awake and alert. No focal neurological deficits. Moves upper and lower extremities spontaneously. Normal speech. PSYCHIATRIC: Appropriate mood and affect; insight and judgment normal. A/P Problem List: (1) Syncope ICD Code: R55 Status: Acute (2) Head injury ICD Code: S09.90XA Status: Acute (3) Avulsion of skin of forearm ICD Code: S51.809A Status: Acute (4) Contusion of rib on right side ICD Code: S20.211A Status: Acute Assessment and Plan Mr. Caldera is a 71-year-old male with a known history of hypertension, diabetes, CAD, atrial fibrillation, and history of CVA who presented to the ED after a fall with subsequent syncopal episode after hitting his head. He had associated vertigo, dizziness and "feeling faint" prior to falling. Head CT report reviewed, no acute intracranial injury; Carotid US report reviewed, no evidence of carotid stenosis; Radius/ulna/humerus/chest x-rays all negative. Cervical spine and abdominal/pelvis CT report reviewed and negative. Dizziness leading to fall with subsequent syncope: LOC after striking head after a fall. Suspect Dizziness secondary to dehydration as below. Echocardiogram report reviewed, normal systolic function with EF 5560 %. Discussed with PT, orthostatic blood pressures normal. Monitor on telemetry. JESSICA/Dehydration: Suspected JESSICA secondary to overdiuresis with Lasix. Creatinine initially 1.38, improved to 1.07. This could definitely contribute to dizziness. Hold Lasix for now, D/W the patient, follow up with PCP next week, educated on fluid restrictions. Held losartan with JESSICA. Acute on chronic shoulder and back pain: Chronic pain exacerbated by fall. Continue home [place] as needed. Change Tizanidine from scheduled to PRN for muscle spasm, hold for sedation with dizziness. History of atrial fibrillation: Continue home Cardizem and Carvedilol. Continue statin. Unclear why patient is not on antiplatelet/anticoagulation due to age and hypertension, has cardiology appointment coming up with Dr. Leggett, would defer to cardiology. Diabetes Mellitus: ACCU checks ACHS, sliding scale insulin. Heart healthy 1800 ADA diet. Resumed home glipizide 20 mg in the morning and 10 mg at night. Continue PCP follow-up. Hypertension: Initially uncontrolled as home medications were not reconciled. BP is a little better today after resuming home carvedilol and Cardizem, although not optimally controlled. Home losartan was held yesterday due to JESSICA , resume today which should improve BP control. Continue PCP follow-up for continued monitoring and dose adjustments. DVT prophylaxis: Lovenox Discharge Planning Discharge patient to home Condition on discharge: Improved Heart healthy diabetic Diet as tolerated Regular activity Rx written: None Follow-up with primary care physician and cardiology Problem Qualifiers (1) Syncope: Qualified Code: R55 - Syncope, unspecified syncope type (2) Head injury: Qualified Code: S09.90XA - Head injury, initial encounter (3) Avulsion of skin of forearm: Qualified Code: S51.802A - Avulsion of skin of forearm, left, initial encounter (4) Contusion of rib on right side: Qualified Code: S20.211A - Contusion of rib on right side, initial encounter Adilson Cleaning Oct 04, 2016 08:23
[2016-10-04] MEDS: ENOXAPARIN SODIUM 40 MG/0.4 ML SYRINGE SQ SCH (08:29)
[2016-10-04] MEDS: SODIUM CHLORIDE 0.9% FLUSH 10 ML FLUSH IV FLUSH SCH (08:30)
[2016-10-04 08:36] VITALS: BP 143/90; PULSE 123; RESP 18; TEMP 98; O2SAT 95
[2016-10-04] MEDS: CARVEDILOL 6.25 MG TAB PO SCH (08:46)
[2016-10-04] MEDS: glipiZIDE 10 MG TAB PO SCH (08:46)
[2016-10-04] MEDS: DILTIAZEM-CD 240 MG CAP ER PO SCH (08:47)
[2016-10-04] MEDS: ACETAMINOPHEN/HYDROcodone 325 MG/5 MG TAB PO PRN (08:53)
[2016-10-04] MEDS ORDERED: PARoxetine HCL 20 MG TAB PO SCH (09:00)
[2016-10-04] MEDS ORDERED: LOSARTAN 25 MG TAB PO SCH (09:00)
--- NOTE | 2016-10-04 12:42 | EC ---
Study Study Date:10/03/2016 STUDY CONCLUSIONS SUMMARY - Procedure narrative: Transthoracic echocardiography. Image quality was poor. Scanning was performed from the parasternal, apical, and subcostal acoustic windows. - Left ventricle: The cavity size was normal. Wall thickness was normal. Systolic function was normal. The estimated ejection fraction was in the range of 55% to 60%. Although no diagnostic regional wall motion abnormality was identified, this possibility cannot be completely excluded on the basis of this study. - Aortic valve: Trileaflet; mildly thickened, mildly calcified leaflets. - Mitral valve: Trace regurgitation. - Tricuspid valve: Trace regurgitation. If LV function is below 40, please consider prescribing an ACEI or ARB or document rationale for non-use. PROCEDURE DATA STUDY STATUS: Elective. Procedure: Transthoracic echocardiography. Image quality was poor. Scanning was performed from the parasternal, apical, and subcostal acoustic windows. Study completion: The patient tolerated the procedure well. Transthoracic echocardiography. M-mode, complete 2D, complete spectral Doppler, and color Doppler. Patient status: Inpatient. CARDIAC ANATOMY LEFT VENTRICLE: The cavity size was normal. Wall thickness was normal. Systolic function was normal. The estimated ejection fraction was in the range of 55% to 60%. Although no diagnostic regional wall motion abnormality was identified, this possibility cannot be completely excluded on the basis of this study. AORTIC VALVE: Trileaflet; mildly thickened, mildly calcified leaflets. Doppler: Transvalvular velocity was within the normal range. There was no stenosis. No regurgitation. Peak gradient: 15mm Hg (S). AORTA: Aortic root: The aortic root was normal in size. MITRAL VALVE: Structurally normal valve. Doppler: Transvalvular velocity was within the normal range. There was no evidence for stenosis. Trace regurgitation. LEFT ATRIUM: The atrium was normal in size. RIGHT VENTRICLE: The cavity size was normal. Wall thickness was normal. PULMONIC VALVE: Doppler: Transvalvular velocity was within the normal range. There was no evidence for stenosis. No regurgitation. TRICUSPID VALVE: Structurally normal valve. Doppler: Transvalvular velocity was within the normal range. Trace regurgitation. PULMONARY ARTERY: The main pulmonary artery was normal-sized. Systolic pressure was within the normal range. RIGHT ATRIUM: The atrium was normal in size. PERICARDIUM: There was no pericardial effusion. SYSTEMIC VEINS: Inferior vena cava: The vessel was normal in size. BASIC MEASUREMENTS ADULT Normal Left ventricle LV internal dimension, ED, chordal level, 49.3 mm 43-52 PLAX LV internal dimension, ES, chordal level, 36.9 mm 23-38 PLAX Fractional shortening, chordal level, PLAX *25 % >29 LV posterior wall thickness, ED 9.81 mm IVS/LVPW ratio, ED *1.47 <1.3 Ventricular septum Septal thickness, ED 14.4 mm Aortic valve Leaflet separation 19 mm 15-26 Left atrium Anterior-posterior dimension 36 mm Right ventricle RV internal dimension, ED, PLAX 24.5 mm 19-38 BASIC MEASUREMENTS ADULT Normal Aortic valve Leaflet separation 19 mm 15-26 Aorta Root diameter, ED 29 mm 20-37 DOPPLER MEASUREMENTS ADULT Normal Main pulmonary artery Pressure, S 26 mm Hg =30 Aortic valve Peak velocity, S 192 cm/s Peak gradient, S 15 mm Hg Tricuspid valve Regurgitant peak velocity 166 cm/s Peak RV-RA gradient, S 11 mm Hg Maximal regurgitant velocity 166 cm/s Systemic veins Estimated CVP 15 mm Hg Right ventricle RV pressure, S 26 mm Hg <30 LEGEND: Mean values are shown as u=mean value. Asterisk (*) burgess values outside specified normal range. Prepared and signed by Junaid Sue [id number]
== END 2016-10-04 12:42 | disposition home or self-care (01) ==
LOC: NEPE 16:27 → NEDA 19:57 → NEPFCDU 21:56
PROVIDERS: ADMIT Family Medicine; ATTEND Family Medicine
DX: R55 Syncope and collapse (principal); S20.211A Contusion of right front wall of thorax, initial encounter; S09.90XA Unspecified injury of head, initial encounter; S51.802A Unspecified open wound of left forearm, initial encounter; E11.9 Type 2 diabetes mellitus without complications; I10 Essential (primary) hypertension; I48.91 Unspecified atrial fibrillation; Z87.891 Personal history of nicotine dependence; G47.33 Obstructive sleep apnea (adult) (pediatric); W19.XXXA Unspecified fall, initial encounter; I25.10 Atherosclerotic heart disease of native coronary artery without angina pectoris; Z79.82 Long term (current) use of aspirin; Z86.73 Personal history of transient ischemic attack (TIA), and cerebral infarction without residual deficits
CPT/HCPCS: 70450; 71010; 71260; 72125; 73060; 73090; 74177; 80048; 80053; 82550; 82552; 82948; 83735; 84443; 84484; 85025; 85610; 85730; 93005; 93306; 93880; 96374; 96375; 97162; 99285; G0378; G8987; G8988; J1650; J2270; J2405; Q9967